=== PATIENT | male | born 1960 | race Caucasian/White ===

== ENCOUNTER 2022-04-25 13:41 | Emergency (ER) | payer SELFPAY ==
[~2022-04-25] VITALS: Ht 170.1 cm; Wt 86.2 kg
[2022-04-25] MEDS ORDERED: HYDROCODONE-AC1 EAC1 PO ×2 (18:18→18:31)
[2022-04-25] MEDS ORDERED: IBUPROFEN600 MG PO (18:31)
== END 2022-04-25 19:25 | disposition home or self-care (01) ==
LOC: ED 13:41
DX: S22.41XA Multiple fractures of ribs, right side, initial encounter for closed fracture (principal); W22.8XXA Striking against or struck by other objects, initial encounter; Y93.89 Activity, other specified; Y92.89 Other specified places as the place of occurrence of the external cause; Y99.8 Other external cause status